=== PATIENT | female | born 1995 | race Two or more races ===

== ENCOUNTER 2020-12-15 11:48 | Emergency (ER) | payer OTHER ==
[~2020-12-15] VITALS: Ht 175.3 cm; Wt 104.3 kg
[2020-12-15 12:06] VITALS: BP 107/86
[2020-12-15] MEDS ORDERED: CIPR10DR EACH EAR (12:20)
--- NOTE | 2020-12-15 12:26 | NUR ---
Patient discharged to home in stable condition. Written and verbal after care instructions given. Patient verbalizes understanding of instruction.
== END 2020-12-15 12:26 | disposition home or self-care (01) ==
LOC: ER 11:48
DX: H60.91 Unspecified otitis externa, right ear (principal); J45.909 Unspecified asthma, uncomplicated